=== PATIENT | female | born 1975 | race Caucasian/White ===

== ENCOUNTER → 2016-12-07 | Outpatient (CLI) | payer OTHER ==
--- NOTE | 2016-12-07 07:37 | US ---
EXAMINATION TYPE: US gallbladder DATE OF EXAM: 12/07/2016 7:17 AM COMPARISON: NONE CLINICAL HISTORY: R10.11 RUQ ABD PAIN. Pt states nausea, diarrhea and RUQ pain EXAM MEASUREMENTS: Liver Length: 15.7 cm Gallbladder Wall: 0.2 cm CBD: 0.5 cm Right Kidney: 12.2 x 4.7 x 5.2 cm Findings: Pancreas: wnl Liver: wnl Gallbladder: No evidence of stones or wall thickening/ Probable anterior wall polyp= 3mm Evidence for sonographic Matos's sign: No CBD: wnl Right Kidney: wnl IMPRESSION: 1. No acute process. Probable tiny gallbladder polyp.
== END | disposition home or self-care (01) ==
LOC: RADUSWWP 07:02
PROVIDERS: ATTEND Family Medicine
DX: R10.11 Right upper quadrant pain (principal)
CPT/HCPCS: 76705

== ENCOUNTER → 2016-12-17 | Outpatient (CLI) | payer OTHER ==
--- NOTE | 2016-12-17 09:39 | NM ---
Nuclear medicine hepatobiliary scan. HISTORY: Pain. The patient received 8 ounces of Ensure and 5.4 mCi of Technetium 99m Choletec. There is normal hepatic extraction. The gallbladder is seen by 20 minutes. There is biliary to kane l clearance by 50 minutes. Ejection fraction is 61%. IMPRESSION: 1. Normal hepatobiliary exam
== END | disposition home or self-care (01) ==
LOC: RADNMMAIN 07:02
PROVIDERS: ATTEND Family Medicine
DX: K82.4 Cholesterolosis of gallbladder (principal)
CPT/HCPCS: 78226; A9537

== ENCOUNTER 2017-02-11 09:34 | Day surgery (SDC) | payer OTHER ==
[2017-02-09 08:52] VITALS: BMI 18.3
[2017-02-11 10:08] VITALS: RESP 16; TEMP 98.2
[2017-02-11] MEDS: LACTATED RINGERS 1,000 ML IV SCH ×2 (10:08→10:10)
[2017-02-11] MEDS ORDERED: PROPOFOL 10 MG/ML 20 ML VIAL IV ONE (10:12)
[2017-02-11] MEDS ORDERED: LIDOCAINE 1% INJ 10MG/ML (20 ML MDV) ONE (10:12)
--- NOTE | 2017-02-11 10:15 | P.GSHP ---
History of Present Illness H&P Date: 02/11/17 Chief Complaint: Epigastric abdominal pain Social 41-year-old female with complaints of epigastric abdominal pain. Her recent ultrasound and HIDA scan are within normal limits. She's been treated for presumed peptic ulcer disease. She presents today for EGD. - Constitutional Constitutional: Reports as per HPI Past Medical History Past Medical History: No Reported History Additional Past Medical History / Comment(s): abdominal discomfort History of Any Multi-Drug Resistant Organisms: None Reported Past Surgical History: Section, Orthopedic Surgery Additional Past Surgical History / Comment(s): lt hip surgery Past Anesthesia/Blood Transfusion Reactions: Malignant Hyperthermia, Postoperative Nausea & Vomiting (PONV) Smoking Status: Current every day smoker Past Alcohol Use History: Occasional Additional Past Alcohol Use History / Comment(s): smoker 13 years <1/2ppd Past Drug Use History: None Reported - Past Family History Mother Family Medical History: No Reported History Medications and Allergies Home Medications Medication Instructions Recorded Confirmed Type Multivitamins, Thera [Multivitamin 1 tab PO DAILY 02/09/17 02/11/17 History (formulary)] Allergies Allergy/AdvReac Type Severity Reaction Status Date / Time No Known Allergies Allergy Verified 02/11/17 09:47 Surgical - Exam Vital Signs Temp Pulse Resp BP Pulse Ox 98.2 F 69 16 90/58 100 02/11/17 10:06 02/11/17 10:06 02/11/17 10:06 02/11/17 10:06 02/11/17 10:06 - General well developed, no distress - Eyes PERRL - ENT normal pinna - Neck no masses - Respiratory normal expansion - Cardiovascular Rhythm: regular - Abdomen Abdomen: soft, non tender Assessment and Plan Plan: Peptic ulcer disease. We'll perform EGD.
--- NOTE | 2017-02-11 10:22 | P.OP ---
Date of Procedure: 02/11/17 Preoperative Diagnosis: Peptic ulcer disease Postoperative Diagnosis: Antral gastritis Small hiatal hernia Mild esophagitis Procedure(s) Performed: EGD Anesthesia: MAC Surgeon: Rubio Zimmerman Pathology: other (Antrum, esophagus) Condition: stable Disposition: PACU Description of Procedure: The patient's placed on the endoscopy table in the lateral position. She received IV sedation. The gastroscope some placed oropharynx passed into the esophagus and into the stomach. The scope was then placed through the pylorus. The first and second portion of the duodenum appeared normal. There is no evidence of any inflammation or ulcers. The scope was then brought back into the antrum and this appeared mildly inflamed. A biopsy was performed. The scope was then retroflexed and the remainder of the stomach appeared normal. There was a small hiatal hernia. The GE junction was at 40 cm. The distal esophagus appeared mildly inflamed and a biopsy was performed. The proximal esophagus. Normal. Scope was withdrawn for patient.
[2017-02-11 11:24] VITALS: BP 110/67; PULSE 59
== END 2017-02-11 11:40 | disposition home or self-care (01) ==
LOC: ORWHC2ENDO 09:34
PROVIDERS: ATTEND Surgery
DX: K29.50 Unspecified chronic gastritis without bleeding (principal); K20.9 Esophagitis, unspecified; F17.200 Nicotine dependence, unspecified, uncomplicated; Z79.1 Long term (current) use of non-steroidal anti-inflammatories (NSAID); K44.9 Diaphragmatic hernia without obstruction or gangrene
CPT/HCPCS: 81025; 88305; 88342; 43239; J2001; J2704

== ENCOUNTER → 2017-06-07 | Outpatient (CLI) | payer OTHER ==
[2017-06-07 12:48] LABS: ALT 39 U/L (9-52); AST 22 U/L (14-36); Alkaline Phosphatase 51 U/L (38-126); Anion Gap 9 mmol/L; Blood Urea Nitrogen 12 mg/dL (7-17); Calcium 9.4 mg/dL (8.4-10.2); Carbon Dioxide 26 mmol/L (22-30); Chloride 107 mmol/L (98-107); Glucose 98 mg/dL (74-99); Non-African American GFR(MDRD) >60 (>60 ml/min/1.73 sqM); Potassium 4.6 mmol/L (3.5-5.1); Sodium 142 mmol/L (137-145); Total Bilirubin 0.4 mg/dL (0.2-1.3); Total Protein 6.6 g/dL (6.3-8.2)
[2017-06-07 12:51] LABS: CH 31.2; CHCM 32.5; HCT 40.9 % (34.0-46.0); HDW 2.35; HGB 13.6 gm/dL (11.4-16.0); MCH 32.3 pg (25.0-35.0); MCHC 33.4 g/dL (31.0-37.0); MCV 96.6 fL (80.0-100.0); Mean Platelet Volume 7.4; RBC 4.23 m/uL (3.80-5.40); RDW 13.6 % (11.5-15.5); WBC 9.4 k/uL (3.8-10.6)
[2017-06-07 12:55] LABS: Prealbumin 26 mg/dL (18-36)
== END | disposition home or self-care (01) ==
LOC: LABWHC1 12:12
PROVIDERS: ATTEND Surgery
DX: R11.10 Vomiting, unspecified (principal); R63.4 Abnormal weight loss
CPT/HCPCS: 36415; 80053; 84134; 85027

== ENCOUNTER 2017-06-08 13:04 | Day surgery (SDC) | payer OTHER ==
[2017-06-07 13:00] VITALS: BMI 18.4
[~2017-06-08 13:04] MED LIST: LACTATED RINGERS 1,000 ML IV SCH; LIDOCAINE 1% 20 ML VIAL (10MG/ML) FOR IV START INTRADERMA PRN
[2017-06-08 14:02] VITALS: TEMP 97
--- NOTE | 2017-06-08 15:30 | P.GSHP ---
History of Present Illness H&P Date: 06/08/17 Chief Complaint: Refractory nausea and vomiting 42 years old female presented with intractable nausea and vomiting with inability to keep food down. She has mild diarrhea. She had workup for reflux symptoms which showed small hiatal hernia. She had recent exposure to toxic chemical substances at work and is currently off work. Patient is concerned that this recent episode of nausea and vomiting is related to chemical exposure. Her CBC and electrolytes were all within normal limits - Review of Systems Comment: All negative except stated in history of present illness Past Medical History Past Medical History: GERD/Reflux Additional Past Medical History / Comment(s): abdominal discomfort. HIATAL HERNIA History of Any Multi-Drug Resistant Organisms: None Reported Past Surgical History: Section, Orthopedic Surgery Additional Past Surgical History / Comment(s): lt hip surgery. EGD Past Anesthesia/Blood Transfusion Reactions: Motion Sickness, Postoperative Nausea & Vomiting (PONV) Smoking Status: Current every day smoker - Past Family History Mother Family Medical History: Cancer Medications and Allergies Home Medications Medication Instructions Recorded Confirmed Type Multivitamins, Thera [Multivitamin 1 tab PO DAILY 02/09/17 06/08/17 History (formulary)] HYDROcodone/APAP 10-325MG [[place] 1 tab PO Q6H PRN 06/07/17 06/08/17 History 10-325] Allergies Allergy/AdvReac Type Severity Reaction Status Date / Time No Known Allergies Allergy Verified 06/08/17 14:05 Surgical - Exam Vital Signs Temp Pulse Resp BP Pulse Ox 97.0 F L 61 16 91/53 99 06/08/17 14:00 06/08/17 14:00 06/08/17 14:00 06/08/17 14:00 06/08/17 14:00 General: Patient is alert and oriented to time, place and person and cooperative with exam. HEENT: No pallor, no icterus, Chest: Bilateral equal breath sounds present. No wheezes, no crackles. Cardiovascular: Regular rate and rhythm. Abdomen: Soft, nontender, nondistended. Integumentary: No active ulcers or discharge. Neurologic: Cranial nerves II-XII intact. Strength upper and lower extremities 5/5. No focal neurologic deficits. Gait is normal. Psychiatric: Has anxiety , no psychosis. No suicidal thoughts. Assessment and Plan (1) GERD (gastroesophageal reflux disease) Status: Acute (2) Nausea & vomiting Status: Acute Plan: 1. Informed consent obtained and patient elected to undergo EGD with possible biopsy. Risks, benefits and potential complications were discussed and patient elected to undergo the procedure
[2017-06-08] MEDS ORDERED: PROPOFOL 10 MG/ML 20 ML VIAL IV ONE (15:31)
--- NOTE | 2017-06-08 15:48 | P.OP ---
Date of Procedure: 06/08/17 Preoperative Diagnosis: Severe gastroesophageal reflux disease Chronic nicotine dependence History of recent occupational toxic chemical exposure Postoperative Diagnosis: Same Procedure(s) Performed: Esophagogastroduodenoscopy with biopsy Implants: NA Anesthesia: MAC Surgeon: Anyi Flores Pathology: other Condition: stable Disposition: PACU Indications for Procedure: 42 years old female presents with severe gastroesophageal reflux disease. She has new onset persistent nausea and vomiting with inability to keep down food. Her CBC and electrolytes were all within normal limits. Patient was extremely concerned about occupational exposure of toxic chemical substance. Operative Findings: 1. GE junction located at 40 cm 2. LA grade 2 distal esophagitis 3. No definite hiatal hernia 4. Patchy cobblestone-like appearance of the gastric cardia 5. Patchy superficial ulceration of the antrum Description of Procedure: A timeout was performed to verify the correct patient and correct procedure. Patient was on continuous vitals and pulse ox monitoring throughout the procedure. She was placed in lateral decubitus position and an oral bite block was inserted. A well-lubricated Olympus upper endoscope was passed per orally. The esophagus was intubated without difficulty. The vocal cords were visualised and protected at all times. The endoscope was passed beyond the pylorus into the first and second portion of the duodenum. No abnormality was noted in the duodenum mucosa. Two random biopsies were taken from the gastric antrum using cold biopsy forceps. The scope was then retroflexed. No hiatal hernia seen. Cobblestone appearance of the gastric mucosa seen along the fundus and cardia. No mass, active ulcer or bleeding stigmata noted within the gastric lumen. There was a patchy area of superficial ulceration in the gastric antrum which was biopsied using cold biopsy forceps. The GE junction is measured at 38 cm from the incisors . Distal reflux esophagitis which is LA grade 2. The endoscope was gradually withdrawn. No abnormality identified in the esophagus. Patient tolerated the procedure well and was taken to post anesthesia care unit in stable condition. FINAL DIAGNOSIS: 1. Gastritis 2. Distal esophagitis Specimen(s) Received A. Stomach, Biopsy - Gastric Ulcerations B. Stomach, Biopsy - Cardia of Stomach C. Stomach, Biopsy - Antrum D. Gastroesophageal junction, Biopsy Final Pathologic Diagnosis A. STOMACH, BIOPSY: MATURE GASTRIC MUCOSA WITHOUT HISTOPATHOLOGIC CHANGES. B. GASTRIC ANTRUM, BIOPSY: MINIMAL CHRONIC GASTRITIS. IMMUNOPEROXIDASE STAIN NEGATIVE FOR HELICOBACTER PYLORI ORGANISMS (CONTROLS APPROPRIATE). C. GASTRIC CARDIA, BIOPSY: MINIMAL CHRONIC GASTRITIS. D. GASTROESOPHAGEAL JUNCTION: MATURE SQUAMOGLANDULAR MUCOSA SHOWING MILD CHRONIC ESOPHAGITIS AND CHRONIC INFLAMMATION OF THE GLANDULAR COMPONENT. NEGATIVE FOR INTESTINAL METAPLASIA.
[2017-06-08 17:04] VITALS: BP 104/63; PULSE 66; RESP 16
== END 2017-06-08 16:41 | disposition home or self-care (01) ==
LOC: ORWHC2ENDO 13:04
PROVIDERS: ATTEND Surgery
DX: K21.0 Gastro-esophageal reflux disease with esophagitis (principal); K29.50 Unspecified chronic gastritis without bleeding; K44.9 Diaphragmatic hernia without obstruction or gangrene; R19.7 Diarrhea, unspecified; F17.200 Nicotine dependence, unspecified, uncomplicated; Z79.899 Other long term (current) drug therapy
CPT/HCPCS: 81025; 88305; 88342; 43239; J2704

== ENCOUNTER 2017-07-13 06:35 | Inpatient (IN) | payer OTHER ==
[~2017-07-13 06:35] MED LIST changes: +DEXAMETHASONE SOD PHOSPHATE 10 MG/ML 1 ML VIAL IV ONE; +HEPARIN SODIUM,PORCINE 5,000 UNIT/ML 1 ML VIAL SQ ONE; +HYDROmorphone 1 MG/ML 1 ML SYRINGE IVP PRN; -LACTATED RINGERS 1,000 ML IV SCH; -LIDOCAINE 1% 20 ML VIAL (10MG/ML) FOR IV START INTRADERMA PRN; +ONDANSETRON 4 MG/2 ML VIAL IVP ONE; +ceFAZolin 2 GM in SODIUM CHLORIDE 0.9% 100 ML IVPB ONE
[2017-07-13] MEDS ORDERED: LIDOCAINE 1% 20 ML VIAL (10MG/ML) FOR IV START INTRADERMA ONE (08:31)
[2017-07-13] MEDS: LACTATED RINGERS 1,000 ML IV SCH (08:33)
[2017-07-13] MEDS ORDERED: ROCURONIUM BROMIDE 10 MG/ML 10 ML VIAL IV ONE (09:12)
[2017-07-13] MEDS ORDERED: SUCCINYLCHOLINE CHLORIDE 100 MG/5 ML SYR IV ONE (09:12)
[2017-07-13] MEDS ORDERED: LIDOCAINE 1% INJ 10MG/ML (20 ML MDV) ONE (09:12)
[2017-07-13] MEDS ORDERED: PROPOFOL 10 MG/ML 20 ML VIAL IV ONE (09:12)
[2017-07-13] MEDS ORDERED: NEOSTIGMINE 1 MG/ML 10 ML VIAL ONE (09:12)
[2017-07-13] MEDS ORDERED: MIDAZOLAM 2 MG/2 ML VIAL ONE (09:12)
[2017-07-13] MEDS ORDERED: GLYCOPYRROLATE 0.2 MG/ML 2 ML VIAL ONE (09:12)
[2017-07-13] MEDS ORDERED: MORPHINE SULFATE 10 MG/ML SYRINGE ONE (09:12)
[2017-07-13] MEDS ORDERED: fentaNYL (PF) 50 MCG/ML 2 ML AMP ONE (09:12)
[2017-07-13] MEDS ORDERED: BUPIVACAINE-EPI 0.5%-1:200,000 10 ML VIAL SQ ONE ×2 (09:43→12:09)
[2017-07-13] MEDS ORDERED: LACTATED RINGERS 1,000 ML IV ONE (10:32)
[2017-07-13] MEDS ORDERED: SIMETHICONE 40 MG/0.6 ML DROPS 2,000 MG/30 ML BOTTLE PO PRN (12:26)
[2017-07-13] MEDS ORDERED: NALOXONE 0.4 MG/ML 1 ML VIAL IV PRN (12:26)
[2017-07-13] MEDS ORDERED: HYOSCYAMINE ORAL DROPS 1.875 MG/15 ML BOTTLE PO PRN (12:26)
[2017-07-13] MEDS ORDERED: diphenhydrAMINE 50 MG/ML 1 ML VIAL IVP PRN (12:26)
--- NOTE | 2017-07-13 12:30 | P.OP ---
Date of Procedure: 07/13/17 Preoperative Diagnosis: Refractory GERD Chronic nicotine dependence Postoperative Diagnosis: Same Procedure(s) Performed: Laparoscopic Yg fundoplication Intraop EGD Implants: NA Anesthesia: GETA, local Surgeon: Anyi Flores Estimated Blood Loss (ml): 50 Pathology: none sent Condition: stable Disposition: PACU Indications for Procedure: 42 years old female presented with severe gastroesophageal reflux disease. She has history of chronic nicotine dependence. EGD did not show any hiatal hernia however she had reflux esophagitis and 24-hour pH study was consistent with acid reflux disease Operative Findings: No hiatal hernia Hepatomegaly Description of Procedure: The patient was brought to the operating room and placed in supine position. General anesthesia with endotracheal intubation was performed as per anesthesia team. A Merino catheter was inserted under sterile aseptic precautions. 2 secure straps were placed. The abdomen was prepped and draped using ChloraPrep and sterile dressings were applied followed by an Ioban dressing. A 5 mm skin incision was made in left anterior axillary line and a Veress needle was inserted. Proper position was confirmed by aspiration and saline meniscus test. Pneumoperitoneum was insufflated to a pressure of 15 mm of Hg. Using 5 mm 30 laparoscope, the peritoneal cavity was entered under direct vision using the Optiview technique. Additional 5 mm trocar was placed in the left upper quadrant for camera and one in the epigastric area for liver retractor. A 5 mm port was placed in the epigastrium and a 12 mm port at the level of the falciform ligament. The patient was placed in reverse Trendelenburg position. A liver retractor was introduced in the epigastric port to elevate the left lobe of the liver and expose the hiatus. The liver was enlarged No hiatal hernia noted. The lesser omentum was opened with LigaSure. The incision was extended over the hiatus to the left of the radha. The right radha was identified and cleared of its investing tissue, and the dissection was then carried over the arch of the crura. The left radha was similarly dissected and the phrenoesophageal ligament divided. The vagus nerves were identified and protected. The esophagus was gently elevated with a closed grasper and the dissection progressed underneath the esophagus until it was fully mobilized. The hernia sac extended up to the chest and was fully mobilized and resected. The gastroepiploic vessels were ligated along the greater curvature of stomach. Care was taken not to injure spleen while dividing the short gastric vessels with Ligasure device. The stomach was completely mobilized and adequate length was obtained in the esophagus allowing at least 3 cm of intra abdominal esophagus. An angled grasper was passed behind the esophagus and the fundus grasped and pulled behind the esophagus. It passed easily and was easily approximated without tension to the remaining fundus, creating a 360 floppy wrap around the distal esophagus. The wrap was sutured to itself with 3 interrupted sutures of 2-0 Ethibond. The top most suture included a partial thickness bite of the esophagus to anchor the wrap. Intraoperative EGD was then performed. The scope was easily passed beyond the wrap without any undue tension or narrowing. The scope was retroflexed and the Yg wrap visualized. There was no air leak upon insufflation of the stomach. Excess air was suctioned and scope was removed. The liver retractor was removed. The 12 mm trocar sites were closed with two transfascial sutures of 0 Vicryl. Pneumoperitoneum was evacuated and all trocar sites were examined. No evidence of bleeding. The skin incision were closed with 4-0 Monocryl followed by Dermabond skin glue. Sponge, instrument and needle count were correct x 2. Patient tolerated the procedure well and was taken to post anesthesia care unit in stable condition
[2017-07-13] MEDS ORDERED: ACETAMINOPHEN IV (For NPO) 1,000 MG in EMPTY BAG 1 BAG IVPB ONE (13:30)
[2017-07-13] MEDS: ONDANSETRON 4 MG/2 ML VIAL IVP PRN ×2 (14:19→22:11)
[2017-07-13] MEDS: ALBUTEROL NEBULIZED 2.5 MG/3 ML INHALATION SCH ×2 (16:24→21:19)
[2017-07-13] MEDS: 0.9% NACL WITH KCL 20 MEQ/L 1,000 ML IV SCH ×2 (17:08→22:18)
[2017-07-13] MEDS: NICOTINE 14MG/24HR PATCH TRANSDERM SCH (17:09)
[2017-07-13] MEDS: HYDROmorphone 1 MG/ML 1 ML SYRINGE IVP PRN ×2 (17:09→20:48)
[2017-07-14] MEDS: HYDROmorphone 1 MG/ML 1 ML SYRINGE IVP PRN ×4 (00:26→10:09)
[2017-07-14] MEDS: 0.9% NACL WITH KCL 20 MEQ/L 1,000 ML IV SCH (04:18)
[2017-07-14 06:27] LABS: Basophils % (A) 0 %; CHCM 33.9; Eosinophils # (A) 0.1 k/uL (0-0.7); Eosinophils % (A) 1 %; HCT 34.4 % (34.0-46.0); HDW 2.37; HGB 11.3 gm/dL (11.4-16.0); Luc # (Auto) 0.06; Luc % (Auto) 1; Lymphocytes # (A) 1.3 k/uL (1.0-4.8); Lymphocytes % (A) 13 %; MCH 31.3 pg (25.0-35.0); MCHC 32.9 g/dL (31.0-37.0); Mean Platelet Volume 7.9; Monocytes # (A) 0.5 k/uL (0-1.0); Monocytes % (A) 5 %; Neutrophils % (A) 81 %; RBC 3.62 m/uL (3.80-5.40); RDW 14.7 % (11.5-15.5); WBC 9.9 k/uL (3.8-10.6); WBC (Perox) 10.46
[2017-07-14 07:05] LABS: Anion Gap 5 mmol/L; Blood Urea Nitrogen 11 mg/dL (7-17); Calcium 8.5 mg/dL (8.4-10.2); Carbon Dioxide 24 mmol/L (22-30); Chloride 109 mmol/L (98-107); Non-African American GFR(MDRD) >60 (>60 ml/min/1.73 sqM); Potassium 4.9 mmol/L (3.5-5.1); Sodium 138 mmol/L (137-145)
[2017-07-14] MEDS: LACTATED RINGERS 1,000 ML IV SCH (07:23)
--- NOTE | 2017-07-14 08:33 | FL ---
EXAMINATION TYPE: FL UGI DATE OF EXAM ORDERED: 07/14/2017 8:13 AM HISTORY: Postop Nicholas fundoplication. COMPARISON: None. FINDINGS: The patient swallowed contrast with ease. There is normal distention of the esophagus. Ther e was prompt egress of contrast from the esophagus into the stomach. There is no evidence of extravas ation or significant free air. IMPRESSION: STATUS POST NICHOLAS FUNDOPLICATION.
[2017-07-14] MEDS: PANTOPRAZOLE 40 MG/10 ML VIAL IV SCH (08:54)
[2017-07-14] MEDS: ALBUTEROL NEBULIZED 2.5 MG/3 ML INHALATION SCH ×4 (09:41→20:39)
--- NOTE | 2017-07-14 12:46 | P.PN ---
Subjective 42-year-old female being seen on rounds this morning patient states she did ambulate in the hallway this morning patient stated passing gas rectally no stool. Patient does report having surgical tenderness pain medication effective for pain control. Patient presented on July 13 undergo laparoscopic destiny fundoplication for symptomatic severe persistent esophageal reflux disease. Patient did undergo an EGD which did not show any hiatal hernia however she had reflux esophagitis. 24-hour pH study was consistent with acid reflux disease. Patient does have a history of chronic nicotine dependency. Objective - Vital Signs Vital signs: Vital Signs Temp 98.7 F 07/14/17 07:50 Pulse 52 L 07/14/17 09:49 Resp 16 07/14/17 07:50 BP 110/50 07/14/17 07:50 Pulse Ox 97 07/14/17 07:50 Intake & Output 07/13/17 07/14/17 07/14/17 18:59 06:59 18:59 Intake Total 1700 2260 480 Output Total 160 1800 850 Balance 1540 460 -370 Weight 54.431 kg Intake: IV 1700 Intake, IV Titration 1900 Amount 0.9% NaCl with KCl 20 Meq 1900 /l 1,000 ml @ 150 mls/hr IV .Q6H40M [facility] Rx#: [id number] Oral 360 480 Output: Urine 110 1800 850 Uretheral (Merino) 600 Estimated Blood Loss 50 Other: Voiding Method Indwelling Catheter Indwelling Catheter Toilet - Exam Physical exam 42-year-old female resting in bed states has ambulated once in the hallway this morning does report having surgical discomfort. No reports of nausea vomiting tolerating liquid diet Lungs essentially clear adequate air movement on room air able to use incentive spirometer can achieve 1500 Heart S1-S2 audible and regular denying chest pain Abdomen multiple endoscopic puncture sites noted no redness at surgical site soft not distended slight surgical tenderness bowel tones present passing gas urinating no difficulty tolerating clear liquid diet Extremities no edema noted - Labs CBC & Chem 7: 07/14/17 06:18 07/14/17 06:18 Labs: Abnormal Lab Results - Last 24 Hours (Table) 07/14/17 07/14/17 Range/Units 06:18 06:18 RBC 3.62 L (3.80-5.40) m/uL Hgb 11.3 L (11.4-16.0) gm/dL Neutrophils # 8.0 H (1.3-7.7) k/uL Chloride 109 H (98-107) mmol/L Assessment and Plan Plan: Impression Refractory esophageal reflux disease History of chronic nicotine dependency EGD showed no evidence of a hiatal hernia it did show reflux esophagitis. 24-hour pH study was consistent with acid reflux disease Status post 13 of July laparoscopic Destiny fundoplication done for severe gastroesophageal reflux disease Plan Continue postop surgical care Stop IV dilaudid start [place] elixir Dietitian provided full liquid diet Encourage ambulation Pain control Prepped for probable discharge in the next 24 hours Abdominal binder for abdominal support Patient's been advised to stop smoking cigarettes The above impression and plan of care have been discussed and directed by signing physician. Eliza Jaramillo nurse practitioner acting as scribe for signing physician.
[2017-07-14] MEDS: NICOTINE 14MG/24HR PATCH TRANSDERM SCH (14:00)
[2017-07-14] MEDS: HYDROcodone/APAP 15 ML SOLUTION PO PRN ×3 (14:00→22:03)
[2017-07-14] MEDS: ONDANSETRON 4 MG/2 ML VIAL IVP PRN (15:14)
[2017-07-15] MEDS: ONDANSETRON 4 MG/2 ML VIAL IVP PRN (00:19)
[2017-07-15] MEDS: HYDROcodone/APAP 15 ML SOLUTION PO PRN ×2 (04:45→09:12)
[2017-07-15] MEDS ORDERED: BISACODYL 5 MG TABLET.DR PO PRN (08:00)
[2017-07-15] MEDS: NICOTINE 14MG/24HR PATCH TRANSDERM SCH (08:20)
[2017-07-15] MEDS: PANTOPRAZOLE 40 MG/10 ML VIAL IV SCH (08:20)
[2017-07-15 08:37] VITALS: BP 113/60; RESP 20; TEMP 99
[2017-07-15] MEDS: ALBUTEROL NEBULIZED 2.5 MG/3 ML INHALATION SCH (09:28)
[2017-07-15 09:36] VITALS: PULSE 60
--- NOTE | 2017-07-15 10:59 | P.DS ---
Providers Date of admission: 07/13/17 07:46 Expected date of discharge: 07/15/17 Attending physician: Anyi Flores Primary care physician: [facility] Course: 42-year-old female presented on the day of admission to undergo laparoscopic yg fundoplication for severe gastroesophageal reflux disease. Done on July 13 Patient had an EGD done did not show any hiatal hernia however the patient had reflux esophagitis per EGD and a 24-hour pH study was consistent with acid reflux disease. Postop patient was tolerating a full liquid diet. And on July 15 was felt to be appropriate to proceed with a discharge to home Patient has been advised to stop smoking cigarettes smoking cessation information provided Impression discharge diagnose Refractory esophageal reflux disease History of chronic nicotine dependency EGD showed no evidence of a hiatal hernia it did show reflux esophagitis. 24-hour pH study was consistent with acid reflux disease Status post 13 of July laparoscopic Yg fundoplication done for severe gastroesophageal reflux disease The above impression and plan of care have been discussed and directed by signing physician. Eliza Jaramillo nurse practitioner acting as scribe for signing physician. Plan - Discharge Summary New Discharge Prescriptions: Discontinued Omeprazole 40 mg PO DAILY #60 capsule.dr Sandi Gunderson Multivitamins, Thera [Multivitamin (formulary)] 1 tab PO DAILY HYDROcodone/APAP 10-325MG [[place] 10-325] 0.5 - 1 tab PO Q6H PRN PRN Reason: Pain Ondansetron HCl [Zofran] 4 mg PO Q8HR PRN #20 tablet PRN Reason: Nausea And Vomiting Discharge Medication List Multivitamins, Thera [Multivitamin (formulary)] 1 tab PO DAILY 02/09/17 [History ] HYDROcodone/APAP 10-325MG [[place] 10-325] 0.5 - 1 tab PO Q6H PRN 06/07/17 [ History] Ondansetron HCl [Zofran] 4 mg PO Q8HR PRN #20 tablet 06/08/17 [Rx] Follow up Appointment(s)/Referral(s): Anyi Flores MD [STAFF PHYSICIAN] - 1 Week Activity/Diet/Wound Care/Special Instructions: No lifting over 10 pounds Shower daily Liquid diet for 2 weeks until seen in a follow-up visit with Dr. flores Discharge Disposition: HOME SELF-CARE
== END 2017-07-15 11:15 | disposition home or self-care (01) | DRG 328 ==
LOC: 2ORWHC 07:46 → 6PED 12:20
PROVIDERS: ADMIT Surgery; ATTEND Surgery
PROC: 0DV44ZZ Restriction of Esophagogastric Junction, Percutaneous Endoscopic Approach (ICD-10-PCS; principal; 2017-07-13 08:30)
PROC: 0DJ08ZZ Inspection of Upper Intestinal Tract, Via Natural or Artificial Opening Endoscopic (ICD-10-PCS; principal; 2017-07-13 08:30)
DX: K21.0 Gastro-esophageal reflux disease with esophagitis (principal); F17.210 Nicotine dependence, cigarettes, uncomplicated
CPT/HCPCS: 74240; 80051; 81025; 82310; 82565; 83735; 84100; 84520; 85025; 94640; 94760

== ENCOUNTER → 2023-02-18 | Outpatient (CLI) | payer OTHER ==
--- NOTE | 2023-02-18 12:57 | XR ---
EXAMINATION TYPE: XR chest 2V DATE OF EXAM: 02/18/2023 COMPARISON: 04/06/2011 TECHNIQUE: PA and lateral views submitted. HISTORY: Cough and congestion FINDINGS: The lungs are clear and there is no pneumothorax, pleural effusion, or focal pneumonia. Heart size normal and no overt failure. Osseous structures intact. Hyperinflation compatible COPD. IMPRESSION: 1. No acute process.
== END | disposition home or self-care (01) ==
LOC: RADXRMAIN 12:11
PROVIDERS: ATTEND Family Medicine
DX: J18.9 Pneumonia, unspecified organism (principal); J40 Bronchitis, not specified as acute or chronic
CPT/HCPCS: 71046

== ENCOUNTER 2023-09-05 22:26 | Emergency (ER) | payer OTHER ==
[2023-09-05] MEDS ORDERED: PROPARACAINE 0.5% OPHTH DROPS 15 ML BTL RIGHT EYE STA (22:34)
[2023-09-05] MEDS ORDERED: FLUORESCEIN STRIPS 1 MG STRIP RIGHT EYE ONE (22:34)
[2023-09-05 22:41] VITALS: BP 120/77; PULSE 77; RESP 16; TEMP 98.2
[2023-09-05] MEDS ORDERED: KETOROLAC 0.5% OPHTH DROPS 5 ML BTL RIGHT EYE SCH (23:15)
--- NOTE | 2023-09-05 23:15 | ED ---
Eye Problem HPI - General Chief complaint: Eye Problems Stated complaint: object in eye Time Seen by Provider: 09/05/23 22:34 Source: patient Mode of arrival: ambulatory Limitations: no limitations - History of Present Illness Initial comments: 48-year-old female presenting with chief complaint of foreign body sensation to the right eye. Patient states that she was doing yard work yesterday and she felt something in her eye. She states that she flushed the eye and felt better. Today when she woke up she has been experiencing foreign body sensation as well as blurred vision, redness and watering of the eye. Patient does not wear contact lenses. - Related Data Home Medications Medication Instructions Recorded Confirmed Multivitamins, Thera [Multivitamin 1 tab PO DAILY 02/09/17 07/13/17 (formulary)] HYDROcodone/APAP 10-325MG [[place] 0.5 - 1 tab PO Q6H PRN 06/07/17 07/13/17 10-325] Previous Rx's Medication Instructions Recorded ondansetron HCL [Zofran] 4 mg PO Q8HR PRN #20 tablet 06/08/17 Allergies Allergy/AdvReac Type Severity Reaction Status Date / Time No Known Allergies Allergy Verified 07/13/17 14:21 Review of Systems ROS Statement: Those systems with pertinent positive or pertinent negative responses have been documented in the HPI. ROS Other: All systems not noted in ROS Statement are negative. Past Medical History Past Medical History: GERD/Reflux Additional Past Medical History / Comment(s): Abdominal discomfort; N/V W/ WGT LOSS R/T GERD. HIATAL HERNIA. History of Any Multi-Drug Resistant Organisms: None Reported Past Surgical History: Section, Orthopedic Surgery Additional Past Surgical History / Comment(s): Lt Hip Surgery CHILD. EGD Past Anesthesia/Blood Transfusion Reactions: Motion Sickness, Postoperative Nausea & Vomiting (PONV) Past Psychological History: No Psychological Hx Reported Smoking Status: Current every day smoker Past Alcohol Use History: Rare Past Drug Use History: None Reported - Past Family History Mother Family Medical History: Cancer General Exam Limitations: no limitations General appearance: alert, in no apparent distress Head exam: Present: atraumatic, normocephalic, normal inspection Eye exam: Present: PERRL, EOMI, other (Corneal abrasion seen with fluorescein staining on brown lamp examination). Absent: periorbital swelling, periorbital tenderness Neck exam: Present: normal inspection, full ROM Respiratory exam: Absent: respiratory distress Neurological exam: Present: alert, oriented X3 Psychiatric exam: Present: normal affect, normal mood Skin exam: Present: warm, dry, intact, normal color. Absent: rash Course Vital Signs 09/05/23 22:27 Temperature 98.2 F Pulse Rate 77 Respiratory 16 Rate Blood Pressure 120/77 O2 Sat by Pulse 97 Oximetry Medical Decision Making - Medical Decision Making Was pt. sent in by a medical professional or institution (, KAT[facility]NN, CLINIC LICENSED PRACTICAL NURSE, urgent care, hospital, or jail...) When possible be specific @ -No Did you speak to anyone other than the patient for history (EMS, parent, family, police, friend...)? What history was obtained from this source @ -No Did you review nursing and triage notes (agree or disagree)? Why? @ -I reviewed and agree with nursing and triage notes Were old charts reviewed (outside hosp., previous admission, EMS record, old EKG, old radiological studies, urgent care reports/EKG's, jail records)? Report findings @ -No old charts were reviewed Differential Diagnosis (chest pain, altered mental status, abdominal pain women, abdominal pain men, vaginal bleeding, weakness, fever, dyspnea, syncope, headache, dizziness, GI bleed, back pain, seizure, CVA, palpatations, mental health, musculoskeletal)? @ -Frontal includes foreign body, corneal abrasion, corneal ulcer, conjunctivitis, this is not an all inclusive list EKG interpreted by me (3pts min.). @ -As above X-rays interpreted by me (1pt min.). @ -None done CT interpreted by me (1pt min.). @ -None done U/S interpreted by me (1pt. min.). @ -None done What testing was considered but not performed or refused? (CT, X-rays, U/S, labs)? Why? @ -None What meds were considered but not given or refused? Why? @ -None Did you discuss the management of the patient with other professionals (professionals i.e. KATELYNN Carrillo, CLINIC LICENSED PRACTICAL NURSE, lab, RT, psych nurse, group social worker, machine shop worker, teacher, conservation science officer, case worker)? Give summary @ -No Was smoking cessation discussed for >3mins.? @ -No Was critical care preformed (if so, how long)? @ -No Were there social determinants of health that impacted care today? How? (Homelessness, low income, unemployed, alcoholism, drug addiction, transportation, low edu. Level, literacy, decrease access to med. care, prison, rehab)? @ -No Was there de-escalation of care discussed even if they declined (Discuss DNR or withdrawal of care, Hospice)? DNR status @ -No What co-morbidities impacted this encounter? (DM, HTN, Smoking, COPD, CAD, Cancer, CVA, ARF, Chemo, Hep., AIDS, mental health diagnosis, sleep apnea, morbid obesity)? @ -None Was patient admitted / discharged? Hospital course, mention meds given and route, prescriptions, significant lab abnormalities, going to OR and other pertinent info. @ -48-year-old female presenting with chief complaint of foreign body sensation in the right eye. Patient states that when she was doing yard work yesterday she felt something in her eye. On fluorescein staining corneal abrasion is seen. No foreign body is seen on examination of the eye or eversion of the eyelid. Patient is sent home with sulfacetamide eyedrops and will get Toradol eyedrops. Instructed to follow-up with ophthalmology. Follow-up with PCP. Report back to ER with any new or worsening symptoms. Discussed return parameters and answered all questions. Patient conveyed verbal understanding and agreed to the plan. I discussed this case in detail with my attending Dr. Flynn Undiagnosed new problem with uncertain prognosis? @ -No Drug Therapy requiring intensive monitoring for toxicity (Heparin, Nitro, Insulin, Cardizem)? @ -No Were any procedures done? @ -No Diagnosis/symptom? @ -Corneal abrasion Acute, or Chronic, or Acute on Chronic? @ -Acute Uncomplicated (without systemic symptoms) or Complicated (systemic symptoms)? @ -Uncomplicated Side effects of treatment? @ -No Exacerbation, Progression, or Severe Exacerbation? @ -No Poses a threat to life or bodily function? How? (Chest pain, USA, ID, pneumonia, PE, COPD, DKA, ARF, appy, cholecystitis, CVA, Diverticulitis, Homicidal, Suicidal, threat to staff... and all critical care pts) @ -No Disposition Clinical Impression: Corneal abrasion Disposition: HOME SELF-CARE Condition: Good Instructions (If sedation given, give patient instructions): Corneal Abrasion (ED) Additional Instructions: Follow-up with PCP and ophthalmology. Report back to ER if any new or worsening symptoms. Apply sulfacetamide eyedrops 2 drops to the affected eye 4 times a day for 5 days Apply one ketorolac eye drop to the affected eye up to 4 times daily as needed for pain Is patient prescribed a controlled substance at d/c from ED?: No Referrals: Pierce Bueno DO [Primary Care Provider] - 1-2 days Michael Clinton MD [STAFF PHYSICIAN] - 1-2 days Time of Disposition: 23:15
[2023-09-06] MEDS ORDERED: SULFACETAMIDE SOD 10% OPHTH DROPS 15 ML BTL RIGHT EYE SCH
== END 2023-09-05 23:39 | disposition home or self-care (01) ==
LOC: EC 22:26
DX: S05.01XA Injury of conjunctiva and corneal abrasion without foreign body, right eye, initial encounter (principal); F17.200 Nicotine dependence, unspecified, uncomplicated; W45.8XXA Other foreign body or object entering through skin, initial encounter; Y93.H2 Activity, gardening and landscaping
CPT/HCPCS: 99283